=== PATIENT | female | born 1975 ===

== ENCOUNTER 2023-02-06 14:55 | Inpatient (IN) | payer OTHER ==
[~2023-02-06] VITALS: Ht 154.9 cm; Wt 70.3 kg
[2023-02-07] MEDS ORDERED: DOVATO 50-3001 EACH PO (08:14)
[2023-02-12] MEDS ORDERED: FAMOTIDINE20 MG (10:00)
[2023-02-12] MEDS ORDERED: FLONASE16 GM (10:00)
[2023-02-15] MEDS ORDERED: NEURONTIN600 MG PO (06:59)
[2023-02-15] MEDS ORDERED: POLY119PG PO (06:59)
[2023-02-15] MEDS ORDERED: IBUPROFEN800 MG PO (06:59)
[2023-02-15] MEDS ORDERED: CLEOCIN HCL300 MG PO (07:00)
[2023-02-15] MEDS ORDERED: SIMETHICONE125 M1 PO (07:00)
[2023-02-15] MEDS ORDERED: PROFERRIN-FORT1 EACH PO (07:01)
== END 2023-02-15 09:21 | disposition home or self-care (01) | DRG 743 ==
LOC: O/R 02-12 06:00 → OB/GYN 02-12 06:00
PROVIDERS: ADMIT Obstetrics & Gynecology; ATTEND Obstetrics & Gynecology
PROC: 0UT70ZZ Resection of Bilateral Fallopian Tubes, Open Approach (ICD-10-PCS; 2023-02-12)
PROC: 0UT90ZZ Resection of Uterus, Open Approach (ICD-10-PCS; principal; 2023-02-12 07:00)
DX: D25.1 Intramural leiomyoma of uterus (principal); D25.2 Subserosal leiomyoma of uterus; D25.0 Submucous leiomyoma of uterus; N72 Inflammatory disease of cervix uteri; N80.03 Adenomyosis of the uterus; Z20.822 Contact with and (suspected) exposure to COVID-19

== ENCOUNTER → 2023-02-18 | Emergency (ER) | payer OTHER ==
[~2023-02-18] VITALS: Ht 154.9 cm; Wt 70.3 kg
[~2023-02-18] MED LIST: CLEOCIN HCL300 MG PO; DOVATO 50-3001 EACH PO; FAMOTIDINE20 MG; FLONASE16 GM; IBUPROFEN800 MG PO; NEURONTIN600 MG PO; POLY119PG PO; PROFERRIN-FORT1 EACH PO; SIMETHICONE125 M1 PO
== END | disposition home or self-care (01) ==
LOC: ER 19:39
DX: K29.70 Gastritis, unspecified, without bleeding (principal)

== ENCOUNTER 2023-09-13 13:39 | Outpatient (CLI) | payer OTHER | END 2023-09-13 13:45 | disposition home or self-care (01) | LOC: SONOGRAMA 13:39 | PROVIDERS: ATTEND Pathology Anatomic Pathology & Clinical Pathology | DX: D34 Benign neoplasm of thyroid gland (principal); E06.3 Autoimmune thyroiditis ==